=== PATIENT | male | born 1995 | race Caucasian/White ===

== ENCOUNTER 2024-10-03 16:56 | Emergency (ER) | payer MEDICAID ==
[2024-10-03] MEDS ORDERED: Sodium Chloride 0.9% 10 ML Syringe FLUSH PRN (17:04)
[2024-10-03] MEDS ORDERED: Naloxone 0.4 MG/ML SDV IVPUSH PRN ×3 (17:06→19:05)
[2024-10-03] MEDS: Ondansetron 4 MG/2 ML SDV IVPUSH ONE (17:27)
[2024-10-03] MEDS: fentaNYL 100 MCG/2 ML SDV IVPUSH ONE ×3 (17:29→19:07)
== END 2024-10-03 19:44 | disposition other institution (70) ==
LOC: FB.ED 16:56
DX: S43.031A Inferior subluxation of right humerus, initial encounter (principal); X58.XXXA Exposure to other specified factors, initial encounter
CPT/HCPCS: 73030; 96374; 96375; 96376; 99284; J2405; J3010